=== PATIENT | male | born 1960 | race Hispanic/Latino ===

== ENCOUNTER 2017-07-09 11:08 | Outpatient (CLI) | payer OTHER ==
--- NOTE | 2017-07-09 11:36 | XRay Report ---
Cervical spine: Cervicalgia. AP and lateral views demonstrates a mild lower cervical dextroscoliosis. Degenerative posterior joints are identified bilaterally at C4-5 and C5-6. Large anterior spurs are present superiorly and inferiorly at C5 with partial bridging of C5 and C6. There is a posterior spur inferiorly at C4. There is mild narrowing of the C5-6 interspace. The vertebral height and alignment are maintained. There is no prevertebral swelling identified. Impression: Lower cervical degenerative changes.
== END 2017-07-09 11:09 | disposition home or self-care (01) ==
LOC: SPVIMAG 11:08
PROVIDERS: ATTEND Internal Medicine
DX: M47.892 Other spondylosis, cervical region (principal)
CPT/HCPCS: 72040